=== PATIENT | female | born 1955 | race African-American/Black ===

== ENCOUNTER 2017-03-29 15:18 | Inpatient (IN) | payer OTHER ==
[2017-03-29 17:25] VITALS: BMI 38.7
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
[2017-03-29] MEDS ORDERED: MENTHOL/PHENOL 1 EACH UD MM PRN (20:37)
[2017-03-29] MEDS ORDERED: MAGNESIUM CITRATE 300 ML BOTTLE PO PRN (20:37)
[2017-03-29] MEDS ORDERED: guaiFENesin/D-METHORPHAN HB 10 ML UNIT-DOSE CUPS PO PRN (20:37)
[2017-03-29] MEDS ORDERED: P-EPHED 60MG/TRIPROLIDI 2.5MG TABLET PO PRN (20:37)
[2017-03-29] MEDS ORDERED: ACETAMINOPHEN 325 MG TABLET (FP) PO PRN (20:37)
[2017-03-29] MEDS ORDERED: MAGNESIUM HYDROX 2400MG/30ML ORAL SUSPENSION 30 ML CUP PO PRN (20:37)
[2017-03-29] MEDS ORDERED: NICOTINE POLACRILEX 2 MG GUM BUC PRN (20:37)
[2017-03-29] MEDS ORDERED: LOPERAMIDE HCL 2 MG CAPSULE PO PRN (20:37)
[2017-03-29] MEDS ORDERED: chlordiazePOXIDE HCL 25 MG CAPSULE PO PRN (20:37)
[2017-03-29] MEDS ORDERED: METHADONE HCL 10 MG TABLET (FOR DETOX USE ONLY) PO ONE ×2 (20:37→23:00)
[2017-03-29] MEDS ORDERED: MAG HYDROX/AL HYDROX/SIMETH 30 ML UNIT-DOSE CUP PO PRN (20:37)
[2017-03-29] MEDS ORDERED: ALBUTEROL SO4 18 GM HFA INHALER IH PRN (20:54)
[2017-03-29] MEDS: THIAMINE HCL 100 MG TABLET (FP) PO SCH (21:56)
[2017-03-29] MEDS: ENALAPRIL MALEATE 10 MG TABLET (FP) PO SCH (21:56)
[2017-03-29 22:56] LABS: URINE APPEARANCE CLOUDY; URINE BILIRUBIN NEGATIVE (NEGATIVE); URINE BLOOD 1+ (NEGATIVE); URINE COLOR AMBER; URINE GLUCOSE (UA) NEGATIVE (NEGATIVE); URINE KETONE TRACE (NEGATIVE); URINE NITRITE NEGATIVE (NEGATIVE); URINE UROBILINOGEN 4.0 E.U/dl mg/dL (0.2-1.0)
[2017-03-29 22:59] LABS: URINE PROTEIN 1+ (NEGATIVE)
[2017-03-29] MEDS: chlordiazePOXIDE HCL 25 MG CAPSULE PO SCH (23:02)
[2017-03-29 23:09] LABS: URINE BACTERIA RARE /hpf (NONE SEEN); URINE MUCUS FEW; URINE RBC 1; URINE WBC 2
[2017-03-30] MEDS: hydrOXYzine PAMOATE 50 MG CAPSULE (FP) PO PRN ×2 (02:34→22:11)
[2017-03-30] MEDS ORDERED: ALBUTEROL SO4 2.5/IPRATROPIUM 0.5 INH SOL 3 ML VIAL.NEB. NEB PRN (06:17)
[2017-03-30] MEDS: chlordiazePOXIDE HCL 25 MG CAPSULE PO SCH ×4 (06:33→22:11)
[2017-03-30] MEDS: metFORMIN HCL 500 MG TABLET (FP) PO SCH ×2 (08:09→17:24)
[2017-03-30 08:53] LABS: URINE LEUK ESTERASE Negative (NEGATIVE)
[2017-03-30] MEDS ORDERED: METHADONE HCL 10 MG TABLET (FOR DETOX USE ONLY) PO SCH (10:00)
--- NOTE | 2017-03-30 10:27 | PN ---
[facility] CIWA - CIWA Score Nausea/Vomitin-No Nausea/No Vomiting Muscle Tremors: 4-Moderate,w/Arms Extend Anxiety: 3 Agitation: 3 Paroxysmal Sweats: 3 Orientation: 0-Oriented Tacttile Disturbances: 0-None Auditory Disturbances: 0-None Visual Disturbances: 0-None Headache: 1-Very Mild CIWA-Ar Total Score: 14 [facility] COWS - Scale Resting Pulse: 1= [place] 81-100 Sweatin=Flushed/Facial Moisture Restless Observation: 1= Difficult to Sit Still Pupil Size: 0= Normal to Room Light Bone or Joint Aches: 2= Severe Diffuse Aches Runny Nose/ Eye Tearin= Runny Nose/Eyes GI Upset > 30mins: 1= Stomach Cramp Tremor Observation of Outstretched Hands: 2= Slight Tremor Visible Yawning Observation: 2= >3x During Session Anxiety or Irritability: 2=Irritable/Anxious Goose Flesh Skin: 0=Smooth Skin COWS Score: 15 [facility] Progress Note (SOAP) Subjective: irritable agitation tearing sweats interrupted sleep body aches Objective: 03/30/17 10:27 Vital Signs Temperature 95.8 F L 03/30/17 10:25 Pulse Rate 80 03/30/17 10:25 Respiratory Rate 22 03/30/17 10:25 Blood Pressure 155/95 03/30/17 10:25 O2 Sat by Pulse Oximetry (%) Laboratory Tests 03/29/17 03/29/17 03/30/17 20:32 22:40 07:40 POC Glucometer 160 120 Urine Color Sheri Urine Appearance Cloudy Urine pH 5.0 Ur Specific [place] 1.029 Urine Protein 1+ H Urine Glucose (UA) Negative Urine Ketones Trace H Urine Blood 1+ H Urine Nitrite Negative Urine Bilirubin Negative Urine Urobilinogen 4.0 e.u/dl H Ur Leukocyte Esterase Negative Urine RBC 1 Urine WBC 2 Ur Epithelial Cells Moderate Urine Bacteria Rare Urine Mucus Few labs pending aaox3 ambulating no acute distress Assessment: 03/30/17 10:28 withdrawal sx Plan: continue detox increase fluids labs pending
[2017-03-30] MEDS: ENALAPRIL MALEATE 10 MG TABLET (FP) PO SCH ×2 (10:48→22:11)
[2017-03-30] MEDS: PRENATAL VITAMINS W/ FOLIC ACID TABLET (FP) PO SCH (10:48)
--- NOTE | 2017-03-30 11:58 | EKG ---
Test Reason : Blood Pressure : / mmHG Vent. Rate : 083 BPM Atrial Rate : 083 BPM P-R Int : 156 ms QRS Dur : 086 ms QT Int : 396 ms P-R-T Axes : 038 064 060 degrees QTc Int : 465 ms NORMAL SINUS RHYTHM MODERATE VOLTAGE CRITERIA FOR LVH, MAY BE NORMAL VARIANT NONSPECIFIC T WAVE ABNORMALITY ABNORMAL ECG NO PREVIOUS ECGS AVAILABLE Confirmed by ALBA ARAUJO MD ([id number]) on 03/30/2017 11:58:03 AM Referred By: Confirmed By:ALBA ARAUJO MD
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
[2017-03-30] MEDS: THIAMINE HCL 100 MG TABLET (FP) PO SCH (22:11)
[2017-03-31] MEDS: chlordiazePOXIDE HCL 25 MG CAPSULE PO SCH ×3 (06:40→17:15)
[2017-03-31] MEDS: metFORMIN HCL 500 MG TABLET (FP) PO SCH ×2 (11:15→17:15)
[2017-03-31] MEDS: METHADONE HCL 5 MG TABLET (FOR DETOX USE ONLY) PO SCH (11:16)
[2017-03-31] MEDS: PRENATAL VITAMINS W/ FOLIC ACID TABLET (FP) PO SCH (11:16)
[2017-03-31] MEDS: ENALAPRIL MALEATE 10 MG TABLET (FP) PO SCH ×2 (11:16→22:35)
--- NOTE | 2017-03-31 14:06 | PN ---
[facility] CIWA - CIWA Score Nausea/Vomitin Muscle Tremors: 3 Anxiety: 3 Agitation: 3 Paroxysmal Sweats: 1-Minimal Palms Moist Orientation: 0-Oriented Tacttile Disturbances: 1-Very Mild Itch/Numbness Auditory Disturbances: 1-Very Mild Visual Disturbances: 0-None Headache: 2-Mild CIWA-Ar Total Score: 17 [facility] COWS - Scale Resting Pulse: 1= [place] 81-100 Sweatin= Chills/Flushing Restless Observation: 3= Extraneous Movement Pupil Size: 1= Pupils >than Normal Bone or Joint Aches: 2= Severe Diffuse Aches Runny Nose/ Eye Tearin= Runny Nose/Eyes GI Upset > 30mins: 3= Vomiting/Diarrhea Tremor Observation of Outstretched Hands: 2= Slight Tremor Visible Yawning Observation: 1= 1-2x During Session Anxiety or Irritability: 2=Irritable/Anxious Goose Flesh Skin: 0=Smooth Skin COWS Score: 18 [facility] Progress Note (SOAP) Subjective: alert,irritable,anxious,interrupted sleep,pain in the body and back Objective: 03/31/17 14:04 Vital Signs Temperature 96.1 F L 03/31/17 10:30 Pulse Rate 86 03/31/17 10:30 Respiratory Rate 18 03/31/17 10:30 Blood Pressure 121/79 03/31/17 10:30 O2 Sat by Pulse Oximetry (%) ekg nsr,lvh no chest pain,no sob,no dizziness Laboratory Last Values POC Glucometer 100 UNITS (80-120) 03/30/17 16:27 Urine Color Sheri 03/29/17 22:40 Urine Appearance Cloudy 03/29/17 22:40 Urine pH 5.0 (5.0-8.0) 03/29/17 22:40 Ur Specific [place] 1.029 (1.001-1.035) 03/29/17 22:40 Urine Protein 1+ (NEGATIVE) H 03/29/17 22:40 Urine Glucose (UA) Negative (NEGATIVE) 03/29/17 22:40 Urine Ketones Trace (NEGATIVE) H 03/29/17 22:40 Urine Blood 1+ (NEGATIVE) H 03/29/17 22:40 Urine Nitrite Negative (NEGATIVE) 03/29/17 22:40 Urine Bilirubin Negative (NEGATIVE) 03/29/17 22:40 Urine Urobilinogen 4.0 e.u/dl mg/dL (0.2-1.0) H 03/29/17 22:40 Ur Leukocyte Esterase Negative (NEGATIVE) 03/29/17 22:40 Urine RBC 1 03/29/17 22:40 Urine WBC 2 03/29/17 22:40 Ur Epithelial Cells Moderate /hpf (FEW) 03/29/17 22:40 Urine Bacteria Rare /hpf (NONE SEEN) 03/29/17 22:40 Urine Mucus Few 03/29/17 22:40 03/31/17 14:05 labs pending Assessment: 03/31/17 14:05 withdrawal symptom Plan: continue detox
[2017-03-31] MEDS: IBUPROFEN 400 MG TABLET (FP) PO PRN (14:55)
[2017-03-31] MEDS: THIAMINE HCL 100 MG TABLET (FP) PO SCH (22:35)
[2017-03-31] MEDS: chlordiazePOXIDE 5 MG CAPSULE PO SCH (22:35)
[2017-04-01] MEDS: chlordiazePOXIDE 5 MG CAPSULE PO SCH ×4 (06:00→18:00)
[2017-04-01] MEDS: metFORMIN HCL 500 MG TABLET (FP) PO SCH ×2 (08:00→17:30)
[2017-04-01] MEDS: PRENATAL VITAMINS W/ FOLIC ACID TABLET (FP) PO SCH (10:49)
[2017-04-01] MEDS: METHADONE HCL 5 MG TABLET (FOR DETOX USE ONLY) PO SCH (10:49)
[2017-04-01] MEDS: ENALAPRIL MALEATE 10 MG TABLET (FP) PO SCH ×2 (10:49→23:00)
--- NOTE | 2017-04-01 11:18 | PN ---
[facility] Progress Note (SOAP) Subjective: alert,irritable,anxious,interrupted sleep,pain in the body Objective: 04/01/17 11:17 Vital Signs Temperature 98.6 F 04/01/17 06:47 Pulse Rate 87 04/01/17 06:47 Respiratory Rate 18 04/01/17 06:47 Blood Pressure 148/83 04/01/17 06:47 O2 Sat by Pulse Oximetry (%) Assessment: 04/01/17 11:17 withdrawal symptom Plan: continue detox,discharge in am
[2017-04-01] MEDS: THIAMINE HCL 100 MG TABLET (FP) PO SCH (23:00)
[2017-04-01] MEDS: chlordiazePOXIDE HCL 10 MG CAPSULE PO SCH (23:07)
[2017-04-02] MEDS: chlordiazePOXIDE HCL 10 MG CAPSULE PO SCH (06:42)
[2017-04-02] MEDS: metFORMIN HCL 500 MG TABLET (FP) PO SCH ×2 (08:00→17:07)
[2017-04-02] MEDS ORDERED: METHADONE HCL 10 MG TABLET (FOR DETOX USE ONLY) PO SCH (10:00)
--- NOTE | 2017-04-02 10:11 | PN ---
[facility] Progress Note (SOAP) Subjective: sweats groggy interrupted sleep Objective: 04/02/17 10:11 Vital Signs Temperature 98.9 F 04/02/17 09:43 Pulse Rate 74 04/02/17 09:43 Respiratory Rate 20 04/02/17 09:43 Blood Pressure 109/61 04/02/17 09:43 O2 Sat by Pulse Oximetry (%) Laboratory Tests 03/29/17 03/29/17 03/30/17 20:32 22:40 07:40 WBC RBC Hgb Hct MCV MCH MCHC RDW Plt Count MPV POC Glucometer 160 120 Urine Color Sheri Urine Appearance Cloudy Urine pH 5.0 Ur Specific [place] 1.029 Urine Protein 1+ H Urine Glucose (UA) Negative Urine Ketones Trace H Urine Blood 1+ H Urine Nitrite Negative Urine Bilirubin Negative Urine Urobilinogen 4.0 e.u/dl H Ur Leukocyte Esterase Negative Urine RBC 1 Urine WBC 2 Ur Epithelial Cells Moderate Urine Bacteria Rare Urine Mucus Few 03/30/17 03/31/17 03/31/17 16:27 07:37 07:40 WBC RBC Hgb Hct MCV MCH MCHC RDW Plt Count MPV POC Glucometer 100 66 77 Urine Color Urine Appearance Urine pH Ur Specific [place] Urine Protein Urine Glucose (UA) Urine Ketones Urine Blood Urine Nitrite Urine Bilirubin Urine Urobilinogen Ur Leukocyte Esterase Urine RBC Urine WBC Ur Epithelial Cells Urine Bacteria Urine Mucus 03/31/17 04/01/17 04/02/17 16:59 06:44 07:00 WBC 9.1 D RBC 3.81 D Hgb 11.2 D Hct 36.4 D MCV 95.7 MCH 29.5 MCHC 30.8 L RDW 14.6 Plt Count 167 D MPV 9.6 D POC Glucometer 104 102 Urine Color Urine Appearance Urine pH Ur Specific [place] Urine Protein Urine Glucose (UA) Urine Ketones Urine Blood Urine Nitrite Urine Bilirubin Urine Urobilinogen Ur Leukocyte Esterase Urine RBC Urine WBC Ur Epithelial Cells Urine Bacteria Urine Mucus 04/02/17 07:33 WBC RBC Hgb Hct MCV MCH MCHC RDW Plt Count MPV POC Glucometer 129 Urine Color Urine Appearance Urine pH Ur Specific [place] Urine Protein Urine Glucose (UA) Urine Ketones Urine Blood Urine Nitrite Urine Bilirubin Urine Urobilinogen Ur Leukocyte Esterase Urine RBC Urine WBC Ur Epithelial Cells Urine Bacteria Urine Mucus aaox3 lying in bed no acute distress Assessment: 04/02/17 10:12 mild withdrawal sx Plan: hold sedating medication for now increase fluids d/c in am
[2017-04-02 10:21] LABS: ALBUMIN 3.3 g/dl (3.4-5.0); ALK PHOS 94 U/L (45-117); ANION GAP 7 (8-16); BILIRUBIN,TOTAL 0.5 mg/dL (0.2-1.0); CALCIUM 9.3 mg/dL (8.5-10.1); CO2 29 mmol/L (21-32); CREATININE 0.9 mg/dL (0.55-1.02); GLUCOSE,RANDOM 118 mg/dL (74-106); SGOT/AST 31 U/L (15-37); SGPT/ALT 35 U/L (12-78); TOT PROT 6.9 g/dl (6.4-8.2)
[2017-04-02] MEDS: PRENATAL VITAMINS W/ FOLIC ACID TABLET (FP) PO SCH (14:03)
[2017-04-02] MEDS: ENALAPRIL MALEATE 10 MG TABLET (FP) PO SCH ×2 (14:05→22:41)
[2017-04-02] MEDS: THIAMINE HCL 100 MG TABLET (FP) PO SCH (22:42)
[2017-04-03] MEDS ORDERED: METHADONE HCL 5 MG TABLET (FOR DETOX USE ONLY) PO SCH (06:00)
[2017-04-03] MEDS: metFORMIN HCL 500 MG TABLET (FP) PO SCH ×2 (06:09→17:24)
--- NOTE | 2017-04-03 09:51 | PN ---
[facility] Progress Note (SOAP) Subjective: irritable agitation some shakes Objective: 04/03/17 09:51 Vital Signs Temperature 98.2 F 04/03/17 06:00 Pulse Rate 80 04/03/17 06:00 Respiratory Rate 20 04/03/17 06:00 Blood Pressure 119/76 04/03/17 06:00 O2 Sat by Pulse Oximetry (%) aaox3 ambulating no acute distress Assessment: 04/03/17 09:52 mild withdrawal sx Plan: continue detox d/c if bed available today if not d/c in am tomorrow
[2017-04-03 09:55] LABS: BASOPHIL 0.6 % (0-2.0); EOSINOPHIL 1.5 % (0-4.5); MCH 30.6 pg (25.7-33.7); MCHC 32.3 g/dl (32.0-36.0); MEAN CELL VOLUME 94.7 fl (80-96); MEAN PLT VOLUME 8.8 fl (7.5-11.1); NEUTROPHILS 66.7 % (42.8-82.8); PLATELET COUNT 185 K/MM3 (134-434); RDW 14.9 % (11.6-15.6); WHITE BLOOD COUNT 5.9 K/mm3 (4.0-10.0)
[2017-04-03 10:11] LABS: INR 1.11 (0.82-1.09); PROTHROMBIN TIME (PATIENT) 12.5 SEC (9.98-11.88)
[2017-04-03 10:39] LABS: ALBUMIN 3.1 g/dl (3.4-5.0); ALK PHOS 87 U/L (45-117); ANION GAP 9 (8-16); BILIRUBIN,TOTAL 0.9 mg/dL (0.2-1.0); CALCIUM 8.7 mg/dL (8.5-10.1); CO2 27 mmol/L (21-32); CREATININE 0.7 mg/dL (0.55-1.02); GLUCOSE,RANDOM 102 mg/dL (74-106); SGOT/AST 29 U/L (15-37); SGPT/ALT 32 U/L (12-78); TOT PROT 6.4 g/dl (6.4-8.2)
[2017-04-03] MEDS: ENALAPRIL MALEATE 10 MG TABLET (FP) PO SCH ×2 (10:49→22:21)
[2017-04-03] MEDS: PRENATAL VITAMINS W/ FOLIC ACID TABLET (FP) PO SCH (10:49)
[2017-04-03] MEDS: IBUPROFEN 400 MG TABLET (FP) PO PRN (17:24)
[2017-04-03] MEDS: THIAMINE HCL 100 MG TABLET (FP) PO SCH (22:21)
[2017-04-03] MEDS: hydrOXYzine PAMOATE 50 MG CAPSULE (FP) PO PRN (22:24)
--- NOTE | 2017-04-03 23:11 | PN ---
[facility] Progress Note (SOAP) Subjective: PT SEEN FOR C/O SWOLLEN IRRITATED RIGHT EYE WITH DISCHARGE AND ITCHINESS. Objective: 04/03/17 23:07 Vital Signs Temperature 98.3 F 04/03/17 21:43 Pulse Rate 85 04/03/17 21:43 Respiratory Rate 18 04/03/17 21:43 Blood Pressure 136/77 04/03/17 21:43 O2 Sat by Pulse Oximetry (%) RT EYE NOTED WITH REDNESS, TEARING, REDNESS OF EYELID, PUSS LIKE DISCHARGE, PUFFY AND SWOLLEN. 04/03/17 23:12 Assessment: 04/03/17 23:12 R EYE CONJUNCTIVITIS Plan: R EYE OPTH OINT QID X 7 DAYS CLEANSE R EYE 2X DAILY WITH MILD SOAP AND WATER
[2017-04-04 06:28] VITALS: BP 122/61; PULSE 78; TEMP 96.3
--- NOTE | 2017-04-04 08:49 | DS ---
[facility] Detox Discharge Summary Admission Date: 03/29/17 Discharge Date: 04/04/17 - History Present History: Alcohol Dependence, Cocaine Dependence, Opioid Dependence, Pcp Dependence - Physical Exam Results Vital Signs: Vital Signs Temperature 96.3 F L 04/04/17 06:27 Pulse Rate 78 04/04/17 06:27 Respiratory Rate 18 04/04/17 06:27 Blood Pressure 122/61 04/04/17 06:27 O2 Sat by Pulse Oximetry (%) - Treatment Hospital Course: Detox Protocol Followed, Detoxed Safely, Responded well, Discharged Condition Good, Rehab Referral Accepted - Medication Discharge Medications: Ambulatory Orders Albuterol Sulfate Inhaler - [Ventolin HFA Inhaler -] 2 inh PO Q4H PRN 10/14/13 Clonazepam [KlonoPIN] 2 mg PO BID 10/14/13 Salmeterol/Fluticasone [Advair 250Mcg/50Mcg -] 1 inh IH BID 10/14/13 Topiramate [Topamax -] 100 mg PO TID #90 tablet 10/29/13 Enalapril Maleate [Vasotec -] 10 mg PO BID 03/29/17 Metformin HCl [Glucophage -] 500 mg PO BID 03/29/17 - Diagnosis (1) Alcohol dependence with uncomplicated withdrawal Current Visit: Yes Status: Chronic (2) Cocaine dependence, uncomplicated Current Visit: Yes Status: Chronic (3) Hepatitis-C Current Visit: Yes Status: Chronic Qualifiers: Viral hepatitis chronicity: carrier Qualified Code(s): B18.2 - Chronic viral hepatitis C (4) Hypertension Current Visit: Yes Status: Chronic Qualifiers: Hypertension type: essential hypertension Qualified Code(s): I10 - Essential (primary) hypertension (5) Opioid dependence with withdrawal Current Visit: Yes Status: Chronic (6) PCP dependence Current Visit: Yes Status: Chronic (7) Sedative, hypnotic or anxiolytic dependence with withdrawal, uncomplicated Current Visit: Yes Status: Chronic (8) Asthma Current Visit: No Status: Chronic Qualifiers: Asthma severity: mild Asthma persistence: unspecified Asthma complication type: uncomplicated Qualified Code(s): J45.909 - Unspecified asthma, uncomplicated (9) Bipolar I disorder, most recent episode mixed, severe with psychotic features Current Visit: No Status: Chronic (10) Drug-induced seizure Current Visit: No Status: Acute (11) Hypokalemia Current Visit: No Status: Acute (12) Seizure disorder Current Visit: No Status: Acute (13) Bipolar II disorder major depressive with atypical features Current Visit: No Status: Chronic (14) DM (diabetes mellitus), type 2 Current Visit: No Status: Chronic Qualifiers: Diabetes mellitus complication status: with unspecified complications (15) Nicotine dependence Current Visit: Yes Status: Acute Qualifiers: Nicotine product type: cigarettes Substance use status: uncomplicated Qualified Code(s): F17.210 - Nicotine dependence, cigarettes, uncomplicated (16) Posttraumatic stress disorder Current Visit: Yes Status: Suspected - AMA Did Patient Leave Against Medical Advice: No
[2017-04-04] MEDS: ENALAPRIL MALEATE 10 MG TABLET (FP) PO SCH (10:20)
[2017-04-04] MEDS: PRENATAL VITAMINS W/ FOLIC ACID TABLET (FP) PO SCH (10:20)
[2017-04-04] MEDS: IBUPROFEN 400 MG TABLET (FP) PO PRN (10:21)
[2017-04-04] MEDS: metFORMIN HCL 500 MG TABLET (FP) PO SCH (10:21)
[2017-04-04] MEDS: ERYTHROMYCIN 0.5% OPHTHALMIC OINTMENT 3.5 GM TUBE OD SCH ×2 (10:50→11:52)
[2017-04-04] MEDS ORDERED: ERYTHROMYCIN 0.5% OPHTHALMIC OINTMENT 3.5 GM TUBE OU SCH (11:33)
== END 2017-04-04 12:15 | disposition home or self-care (01) | DRG 773 ==
LOC: YASAS 15:18 → Y3E 18:32 → UNDOADMIN 18:32 → Y6N 19:49
PROVIDERS: ADMIT Internal Medicine; ATTEND Internal Medicine
PROC: HZ2ZZZZ Detoxification Services for Substance Abuse Treatment (ICD-10-PCS; principal; 2017-03-29)
DX: F11.23 Opioid dependence with withdrawal (principal); F10.230 Alcohol dependence with withdrawal, uncomplicated; F13.230 Sedative, hypnotic or anxiolytic dependence with withdrawal, uncomplicated; F14.20 Cocaine dependence, uncomplicated; F16.20 Hallucinogen dependence, uncomplicated; F17.210 Nicotine dependence, cigarettes, uncomplicated; F43.10 Post-traumatic stress disorder, unspecified; F31.81 Bipolar II disorder; F19.24 Other psychoactive substance dependence with psychoactive substance-induced mood disorder; F31.64 Bipolar disorder, current episode mixed, severe, with psychotic features; B18.2 Chronic viral hepatitis C; I10 Essential (primary) hypertension; J45.909 Unspecified asthma, uncomplicated; E87.6 Hypokalemia; E11.9 Type 2 diabetes mellitus without complications; E78.00 Pure hypercholesterolemia, unspecified; H10.9 Unspecified conjunctivitis; Z86.69 Personal history of other diseases of the nervous system and sense organs; Z88.8 Allergy status to other drugs, medicaments and biological substances
CPT/HCPCS: 36415; 71020-TC; 80053; 81003; 81015; 85025; 85610; 86593; 93005; 93010

== ENCOUNTER 2020-08-23 13:21 | Inpatient (IN) | payer OTHER ==
[2020-08-23 14:50] VITALS: BMI 33.2
[2020-08-23 16:00] LABS: BASO % 1.1 % (0-2.0); EOS % 1.4 % (0-4.5); HEMATOCRIT 36.3 % (32.4-45.2); LYMPH % 29.1 % (8-40); MEAN CELL VOLUME 93.9 fl (80-96); MEAN PLT VOLUME 8.7 fl (7.5-11.1); MONO % 9.9 % (3.8-10.2); NEUT % 58.5 % (42.8-82.8); PLATELET COUNT 243 K/MM3 (134-434); RBC 3.86 M/mm3 (3.60-5.2); RDW 15.2 % (11.6-15.6); WHITE BLOOD COUNT 4.7 K/mm3 (4.0-10.0)
[2020-08-23 16:20] LABS: CHLORIDE 104 mmol/L (98-107); POTASSIUM 3.5 mmol/L (3.5-5.1); SODIUM 142 mmol/L (136-145)
[2020-08-23 16:23] LABS: CALCIUM 9.6 mg/dL (8.5-10.1)
[2020-08-23 16:24] LABS: ALBUMIN 3.6 g/dl (3.4-5.0); ANION GAP 6 MMOL/L (8-16); BLOOD UREA NITROGEN 9.6 mg/dL (7-18); CO2 32 mmol/L (21-32); GLUCOSE,RANDOM 91 mg/dL (74-106)
[2020-08-23 16:27] LABS: CREATININE 0.9 mg/dL (0.55-1.3); SGOT/AST 24 U/L (15-37); SGPT/ALT 24 U/L (13-61)
[2020-08-23 16:29] LABS: TOT PROT 7.6 g/dl (6.4-8.2)
[2020-08-23 16:30] LABS: ALK PHOS 95 U/L (45-117)
[2020-08-23 16:32] LABS: N-TERMINAL BNP 28.4 pg/ml (5-125)
[2020-08-23] MEDS ORDERED: POTASSIUM CHLORIDE TABS 20 MEQ TABLET.ER (FP) PO ONE ×2 (22:44→23:04)
[2020-08-23] MEDS ORDERED: ALBUTEROL SO4 HFA INHALER IH PRN (22:50)
[2020-08-23] MEDS ORDERED: FUROSEMIDE 40 MG/4 ML INJECTABLE VIAL IVPUSH ONE (22:50)
[2020-08-23] MEDS ORDERED: FUROSEMIDE 40 MG/4 ML INJECTABLE VIAL ONE (23:05)
[2020-08-24] MEDS: INSULIN SLIDING SCALE (NOVOLOG) 1 VIAL SQ SCH ×2 (08:36→11:30)
[2020-08-24] MEDS ORDERED: DOCUSATE SODIUM 100 MG CAPSULE (FP) PO SCH (10:00)
[2020-08-24] MEDS ORDERED: ENOXAPARIN NA (PORCINE) 40 MG/0.4 ML DISP.SYRIN SQ SCH (10:00)
[2020-08-24] MEDS ORDERED: DOCUSATE SODIUM 100 MG CAPSULE (FP) PO ONE (10:43)
[2020-08-24] MEDS ORDERED: ALBUTEROL SO4 HFA INHALER IH ONE (10:58)
[2020-08-24 11:02] LABS: HEMATOCRIT 33.9 % (32.4-45.2); HEMOGLOBIN 11.2 GM/dL (10.7-15.3); MCH 31.1 pg (25.7-33.7); MEAN CELL VOLUME 94.2 fl (80-96); MEAN PLT VOLUME 8.7 fl (7.5-11.1); PLATELET COUNT 217 K/MM3 (134-434); RDW 15.2 % (11.6-15.6); WHITE BLOOD COUNT 4.7 K/mm3 (4.0-10.0)
[2020-08-24 11:21] LABS: POTASSIUM 3.4 mmol/L (3.5-5.1)
[2020-08-24 11:23] LABS: CALCIUM 8.8 mg/dL (8.5-10.1)
[2020-08-24 11:24] LABS: ALBUMIN 3.3 g/dl (3.4-5.0); BLOOD UREA NITROGEN 16.3 mg/dL (7-18); MAGNESIUM 2.1 mg/dL (1.8-2.4)
[2020-08-24 11:27] LABS: PHOSPHOROUS 3.8 mg/dL (2.5-4.9)
[2020-08-24 11:28] LABS: BILIRUBIN,TOTAL 0.7 mg/dL (0.2-1); TOT PROT 7.1 g/dl (6.4-8.2)
[2020-08-24 11:28] LABS: URINE APPEARANCE CLEAR; URINE BILIRUBIN NEGATIVE (NEGATIVE); URINE COLOR YELLOW; URINE GLUCOSE (UA) NEGATIVE (NEGATIVE); URINE KETONE NEGATIVE (NEGATIVE); URINE LEUK ESTERASE NEGATIVE (NEGATIVE); URINE NITRITE NEGATIVE (NEGATIVE); URINE PROTEIN NEGATIVE (NEGATIVE); URINE UROBILINOGEN 0.2 mg/dL (0.2-1.0)
[2020-08-24 11:39] LABS: METHADONE, UR NEGATIVE ng/ml (CUTOFF=300); OPIATES, URI NEGATIVE ng/ml (CUTOFF=300); URINE BARBITURATES NEGATIVE ng/ml (CUTOFF=200)
[2020-08-24 11:40] LABS: URINE AMPHETAMINES NEGATIVE ng/ml (CUTOFF=500)
[2020-08-24 11:49] LABS: COCAINE, UR NEGATIVE ng/ml (CUTOFF=300); URINE BENZODIAZEPINES NEGATIVE ng/ml (CUTOFF=200)
[2020-08-24 11:50] VITALS: TEMP 98.5
[2020-08-24 11:59] LABS: PHENCYCLIDINE,URINE POSITIVE ng/ml (CUTOFF=25)
[2020-08-24] MEDS ORDERED: POTASSIUM CHLORIDE TABS 20 MEQ TABLET.ER (FP) PO ONE ×2 (13:15→13:34)
[2020-08-24 13:48] VITALS: BP 141/80; PULSE 83
== END 2020-08-24 14:15 | disposition left against medical advice (07) | DRG 861 ==
LOC: JER 13:21 → JERBED 19:15
PROVIDERS: ADMIT Hospitalist; ATTEND Internal Medicine
DX: R60.0 Localized edema (principal); F10.10 Alcohol abuse, uncomplicated; F19.10 Other psychoactive substance abuse, uncomplicated; D42.9 Neoplasm of uncertain behavior of meninges, unspecified; F25.9 Schizoaffective disorder, unspecified; I10 Essential (primary) hypertension; J45.909 Unspecified asthma, uncomplicated; E11.40 Type 2 diabetes mellitus with diabetic neuropathy, unspecified; R32 Unspecified urinary incontinence; K59.09 Other constipation; B18.2 Chronic viral hepatitis C; N81.10 Cystocele, unspecified; E78.5 Hyperlipidemia, unspecified; E11.9 Type 2 diabetes mellitus without complications; W18.39XA Other fall on same level, initial encounter; Y92.89 Other specified places as the place of occurrence of the external cause; Y99.8 Other external cause status
CPT/HCPCS: 36415; 70450-TC; 71045-TC-FY; 80048; 80053; 80307; 81003; 82550; 82553; 82962; 83036; 83735; 83880; 84100; 84484; 85025; 85027; 87040; 93005; 93010; 93970-TC; 99285-25; C9803; U0003; U0005